=== PATIENT | female | born 1950 | race Two or more races ===

== ENCOUNTER 2020-09-07 13:21 | Outpatient (CLI) | payer MEDICARE, MEDICAID ==
[~2020-09-07] VITALS: Ht 157.5 cm; Wt 64.9 kg
[2020-09-07 13:40] VITALS: BP 133/73
[2020-09-08] MEDS ORDERED: [UNRECOGNIZED DRUG - OTHER] ORAL (10:26)
[2020-09-08] MEDS ORDERED: VITAMIN B COMP1 EAC2 ORAL (10:26)
[2020-09-08] MEDS ORDERED: LUPRON DEPOT7.5 MG IM (10:26)
[2020-09-08] MEDS ORDERED: BISOPROLOL FUMAR5 MG PO (10:26)
[2020-09-08] MEDS ORDERED: NEXIUM20 MG ORAL (10:26)
[2020-09-08] MEDS ORDERED: NORVASC5 MG ORAL (10:26)
[2020-09-08] MEDS ORDERED: SIMVASTATIN20 MG ORAL (10:26)
[2020-09-08] MEDS ORDERED: VAGIFEM10 MC1 VG (10:26)
[2020-09-08] MEDS ORDERED: JANUMET 50-5001 EACH ORAL (10:26)
[2020-09-08] MEDS ORDERED: VITAMIN D325 MC1 PO (10:26)
[2020-09-08] MEDS ORDERED: MAGNESIUM500 MG PO (10:26)
[2020-09-08] MEDS ORDERED: LEXAPRO10 MG ORAL (10:26)
== END 2020-09-07 15:16 | disposition home or self-care (01) ==
LOC: PAN 13:21
DX: K21.9 Gastro-esophageal reflux disease without esophagitis (principal)
CPT/HCPCS: 99203

== ENCOUNTER 2020-09-19 10:31 | Outpatient (CLI) | payer MEDICARE, MEDICAID ==
[~2020-09-19 10:31] MED LIST: BISOPROLOL FUMAR5 MG PO; JANUMET 50-5001 EACH ORAL; LEXAPRO10 MG ORAL; LUPRON DEPOT7.5 MG IM; MAGNESIUM500 MG PO; NEXIUM20 MG ORAL; NORVASC5 MG ORAL; SIMVASTATIN20 MG ORAL; VAGIFEM10 MC1 VG; VITAMIN B COMP1 EAC2 ORAL; VITAMIN D325 MC1 PO; [UNRECOGNIZED DRUG - OTHER] ORAL
[2020-09-19 11:01] VITALS: BP 125/64
--- NOTE | 2020-09-19 11:34 | General Progress Note ---
Subjective ROS Limited/Unobtainable: Yes Allergies: Coded Allergies: No Known Allergies (Unverified , 09/11/20) Objective Last 24 Hour Vital Signs Date Time Temp Pulse Resp B/P (MAP) Pulse Ox O2 Delivery O2 Flow Rate FiO2 09/19/20 11:01 96.0 70 16 125/64 93 General Appearance: no apparent distress EENT: PERRL/EOMI Neck: supple Cardiovascular: normal rate Respiratory/Chest: decreased breath sounds Abdomen: normal bowel sounds, non tender, soft Extremities: non-tender Assessment/Plan Assessment/Plan: 1. History of H. pylori infection. 2. Hypertension. 3. Hypercholesteremia. 4. Diabetes. 5. Anxiety. 6. BONDS. 7. History of colonic polyps. 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
== END 2020-09-19 12:31 | disposition home or self-care (01) ==
LOC: PAN 10:31
DX: K29.70 Gastritis, unspecified, without bleeding (principal); I85.00 Esophageal varices without bleeding; F41.9 Anxiety disorder, unspecified; E11.9 Type 2 diabetes mellitus without complications; I10 Essential (primary) hypertension; E78.00 Pure hypercholesterolemia, unspecified; K75.81 Nonalcoholic steatohepatitis (NASH); Z86.010 Personal history of colon polyps
CPT/HCPCS: 99212